=== PATIENT | male | born 2000 | race Caucasian/White ===

== ENCOUNTER 2024-03-25 12:19 | Outpatient (AMB) | payer BC, SELFPAY ==
--- NOTE | 2024-03-25 12:21 | AM.OFFWIN_ITS ---
Intake Vital Signs 03/25/24 12:25 Height 5 ft 9 in Weight 295 lb 2 oz BMI 43.6 BP 148/92 H Blood Pressure Location Lt brachial Position Sitting Pulse 102 H Pulse Source Pulse Oximeter Pulse Oximetry (%) 96 Oxygen Delivery Method Room Air Intake Visit Reasons: [employer] Cough, mucus Patient Tobacco Use Status: Never used Tobacco Allergies No Known Allergies Allergy (Verified 03/25/24 12:26) Do you need a note to return to daycare/school/sports/work: No HPI HPI Comments History of Present Illness Details Patient presents to the walk in for sick visit Endorses productive cough for last 1 week Denies sinus congestion, ear pain, headache, fatigue, bodyaches. Endorse sore throat with coughing Denies fever, chest pain, shortness of breath, palpitations, syncope, weakness Denies headache, ear pain, sore throat. Endorses tobacco use PFSH Social History Patient Tobacco Use Status: Never used Tobacco Review of Systems Const All systems reviewed & are unremarkable except as noted in HPI and below Physical Exam Vital Signs: Last Vital Signs Pulse 102 H 03/25/24 12:25 BP 148/92 H 03/25/24 12:25 Pulse Ox 96 03/25/24 12:25 Oxygen Delivery Method Room Air 03/25/24 12:25 BMI result Body Mass Index 43.6 General: awake, alert, oriented. Answers questions appropriately. Fully engaged in examination. Skin: warm, dry, intact HEENT: TMs intact bilaterally, no redness. Posterior pharynx without erythema or exudate. Sclera without icterus or injection. Cardiac: External chest normal in appearance. Respiratory: +cough. LSCTAB. Abdomen: without gross distension. Neurological: Oriented to person, place, time and situation. Thought process intact. Psychiatric: Appropriate mood and affect. Good judgment and insight. Results AMB Rapid Strep AMB Rapid Strep Negative Last Edit by Danny Mcknight CMA on 03/25/24 13 :22 Assessment & Plan Assessment & Plan (1) Bronchitis: Code(s): J40 - Bronchitis, not specified as acute or chronic Plan Prednisone 40 mg p.o. daily x5 days Z-Osvaldo as prescribed Rest, drink plenty of fluids, tylenol or motrin as needed. Counseled against continued use of nicotine/tobacco Follow up with pcp or in clinic for any new or worsening symptoms. Go to ER for shortness of breath, chest pain, palpitations, weakness, dizziness. Orders: Orders AMB Rapid Strep Screen Today Z13.9 - Encounter for screening, unspecified Medications: New prednisone 40 mg (2 x 20 mg) PO DAILY 5 days 10 tabs 0RF azithromycin For 250 mg dose pack: take 500 mg today (day 1), then 250 mg for 4 days (days 2-5) PO 6 tabs 0RF Coding Level of Care Code New Pt Level 3 (46864) Diagnoses Bronchitis J40
[2024-03-25 12:25] VITALS: BP 148/92; PULSE 102; O2SAT 96; BMI 43.6
== END 2024-03-25 14:00 | disposition home or self-care (01) ==
PROVIDERS: Visit Provider Registered Nurse Emergency
DX: J40 Bronchitis, not specified as acute or chronic (principal)
CPT/HCPCS: 87880; 99203